=== PATIENT | female | born 1955 | race Caucasian/White ===

== ENCOUNTER → 2017-09-09 | Outpatient (CLI) | payer OTHER | LOC: BMCIMAGING 09:01 | PROVIDERS: ATTEND Family Medicine | DX: J98.09 Other diseases of bronchus, not elsewhere classified (principal) ==

== ENCOUNTER 2019-01-12 09:11 | Observation (INO) | payer OTHER ==
[2019-01-12] MEDS ORDERED: ASPIRIN 81 MG CHEWABLE TAB PO ONE (09:30)
[2019-01-12] MEDS ORDERED: NS 500 ML IV ONE (09:30)
[2019-01-12 09:48] LABS: PLATELET COUNT 247 10^3/uL (150-400)
[2019-01-12 10:09] LABS: INR 1.07 (0.83-1.16); PROTIME(PATIENT) 13.5 SEC (12.0-15.0)
[2019-01-12] MEDS ORDERED: ONDANSETRON 4 MG/2 ML VIAL IVP PRN (11:12)
[2019-01-12] MEDS ORDERED: ONDANSETRON DISINTEGRATING 4 MG TAB PO PRN (11:12)
--- NOTE | 2019-01-12 11:12 | EDPHY ---
H & P Time Seen by Provider: 01/12/19 09:30 HPI/ROS: HPI Chest pain, left arm numbness. 63-year-old female by private vehicle with her friend in co-worker. 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 This patient reports that 6:00 a.m. She developed substernal chest pain described as sharp and aching in deep. She had associated with this a sensation of numbness in her left shoulder, left side of her neck, running down the posterior aspect of her left arm into her 2nd and 3rd digits of the left hand. She reports that her chest pain is now better. She describes having a mild discomfort described as a pressure but still having this vague sensation of left upper extremity numbness. She denies any focal weakness. She has a family history of coronary artery disease. Otherwise she does not smoke. She denies any history of diabetes, hypertension , hyperlipidemia. ROS: Constitutional: No fever, no chills. No weakness. Eyes: No discharge. No changes in vision. ENT: No sore throat. No nasal congestion or rhinorrhea. Respiratory: No cough. No shortness of breath. Cardiac: As above, no palpitations. Gastrointestinal: No abdominal pain, no vomiting, no diarrhea. Genitourinary: No hematuria. No dysuria or increased frequency with urination. Musculoskeletal: No back pain. No neck pain. No myalgias or arthralgias. Skin: No rashes. Neurological: No headache. As above. Past medical history: GERD. She takes omeprazole for this. Sleep apnea and uses CPAP. Social history: Nonsmoker. No alcohol. Here with her friend. As above. Physical Exam: General Appearance: Alert, no distress. This patient is responding to questions appropriately and in full sentences. This patient appears well- hydrated and well-nourished. Eyes: Pupils equal and round no pallor or injection. No lid edema, erythema or injection. Respiratory: There are no retractions, lungs are clear to auscultation anteriorly with good air movement bilaterally. Cardiovascular: Regular rate and rhythm. No murmur. Gastrointestinal: Moderately obese habitus. Abdomen is soft and nontender, no masses, bowel sounds normal. No focal tenderness at McBurney's point. No Siddiqui sign. Neurological: Motor sensory function is grossly intact in the bilateral upper and bilateral lower extremities. Cranial nerves are normal. Gait is normal. Skin: Warm and dry, no rashes. Musculoskeletal: Neck is supple and nontender. No midline cervical, thoracic tenderness on palpation. No pain on flexion of her neck. Extremities are symmetrical. All joints range without pain or impingement. Psychiatric: No agitation. No depression. Database: EKG: EKG time is 9:21 a.m.; EKG shows a narrow complex normal sinus rhythm with a ventricular rate of 89. The RI, QRS, QT intervals are within normal limits. There are no ST-T wave changes indicative of ischemic or injury pattern. No evidence of right heart strain. Interpreted by me. Imaging: Chest x-ray AP portable: The cardiac mediastinal silhouette is unremarkable. Stable otherwise poor inspiration noted. No evidence of infiltrate or pneumothorax. Interpreted by me. Procedures: Emergency department course: Triage vital signs reviewed. She is moderately hypertensive. Vital signs are otherwise normal. IV was placed. She was placed on a lunchroom monitor. She was given 325 mg of chewed aspirin. EKG obtained and reviewed by myself. 11:05 a.m., the patient was re-evaluated, results of her diagnostic testing discussed with her and her friend. I recommended admission for further workup of her chest pain and left arm discomfort. She is in agreement. All of her questions were answered. Hospitalist paged. 11:15 a.m., spoke with on-call hospitalist, case discussed in detail, patient accepted for admission to telemetry observation under the care of Dr. Tucker. She was admitted in stable condition. Differential Diagnosis: The differential diagnosis on this patient includes but is not limited to acute coronary syndrome, anginal equivalent chest pain, anxiety reaction. CVA, cervical radiculopathy unlikely. This represents a partial list of diagnoses considered. These considerations are based on history, physical exam, past history, reassessment and diagnostic testing. Smoking Status: Never smoked Constitutional: Initial Vital Signs Temperature (C) 36.8 C 01/12/19 09:17 Heart Rate 91 01/12/19 09:17 Respiratory Rate 18 01/12/19 09:17 Blood Pressure 178/111 H 01/12/19 09:17 O2 Sat (%) 92 01/12/19 09:17 O2 Delivery Mode Room Air Allergies/Adverse Reactions: No Known Allergies Allergy (Unverified 01/12/19 09:12) Home Medications: Medication Instructions Recorded Omeprazole 01/12/19 Medical Decision Making - Diagnostics Imaging Results: Imaging Impressions Chest X-Ray 01/12/19 09:31 Impression: Stable relatively poor inspiration. Otherwise, normal chest x-ray. - Data Points Laboratory Results: Laboratory Results 01/12/19 09:23 01/12/19 09:23 01/12/19 01/12/19 01/12/19 09:27 09:23 09:23 WBC RBC Hgb Hct MCV MCH MCHC RDW Plt Count MPV Neut % (Auto) Lymph % (Auto) [place] % (Auto) Eos % (Auto) Baso % (Auto) Nucleat RBC Rel Count Absolute Neuts (auto) Absolute Lymphs (auto) Absolute Monos (auto) Absolute Eos (auto) Absolute Basos (auto) Absolute Nucleated RBC Immature Gran % Immature Gran # PT 13.5 SEC SEC (12.0-15.0) INR 1.07 (0.83-1.16) APTT 27.2 SEC SEC (23.0-38.0) Sodium 138 mEq/L mEq/L (135-145) Potassium 4.3 mEq/L mEq/L (3.5-5.2) Chloride 105 mEq/L mEq/L (97-110) Carbon Dioxide 24 mEq/l mEq/l (22-31) Anion Gap 9 mEq/L mEq/L (6-14) BUN 19 mg/dL mg/dL (7-23) Creatinine 0.9 mg/dL mg/dL (0.6-1.0) Estimated GFR > 60 Glucose 94 mg/dL mg/dL (70-100) Calcium 9.6 mg/dL mg/dL (8.5-10.4) POC Troponin I 0.00 ng/mL ng/mL (0.00-0.08) 01/12/19 09:23 WBC 8.28 10^3/uL 10^3/uL (3.80-9.50) RBC 4.99 10^6/uL 10^6/uL (4.18-5.33) Hgb 13.7 g/dL g/dL (12.6-16.3) Hct 41.1 % % (38.0-47.0) MCV 82.4 fL fL (81.5-99.8) MCH 27.5 pg L pg (27.9-34.1) MCHC 33.3 g/dL g/dL (32.4-36.7) RDW 13.8 % % (11.5-15.2) Plt Count 247 10^3/uL 10^3/uL (150-400) MPV 9.9 fL fL (8.7-11.7) Neut % (Auto) 40.6 % % (39.3-74.2) Lymph % (Auto) 47.1 % H % (15.0-45.0) Ventura % (Auto) 8.0 % % (4.5-13.0) Eos % (Auto) 3.1 % % (0.6-7.6) Baso % (Auto) 0.8 % % (0.3-1.7) Nucleat RBC Rel Count 0.0 % % (0.0-0.2) Absolute Neuts (auto) 3.36 10^3/uL 10^3/uL (1.70-6.50) Absolute Lymphs (auto) 3.90 10^3/uL H 10^3/uL (1.00-3.00) Absolute Monos (auto) 0.66 10^3/uL 10^3/uL (0.30-0.80) Absolute Eos (auto) 0.26 10^3/uL 10^3/uL (0.03-0.40) Absolute Basos (auto) 0.07 10^3/uL 10^3/uL (0.02-0.10) Absolute Nucleated RBC 0.00 10^3/uL 10^3/uL (0-0.01) Immature Gran % 0.4 % % (0.0-1.1) Immature Gran # 0.03 10^3/uL 10^3/uL (0.00-0.10) PT INR APTT Sodium Potassium Chloride Carbon Dioxide Anion Gap BUN Creatinine Estimated GFR Glucose Calcium POC Troponin I Medications Given: Discontinued Medications Aspirin (Aspirin) 324 mg PO EDNOW ONE Stop: 01/12/19 09:31 Last Admin: 01/12/19 09:39 Dose: 324 mg Sodium Chloride (Ns) 500 mls @ 1,000 mls/hr IV EDNOW ONE PRN Reason: Protocol Stop: 01/12/19 09:59 Last Admin: 01/12/19 09:39 Dose: 500 mls Point of Care Test Results: Chemistry 01/12/19 09:27 POC Troponin I 0.00 ng/mL ng/mL (0.00-0.08) Departure - Departure Disposition: [facility] Inpatient Acute Clinical Impression: Chest pain, Paresthesia of left arm Referrals: NONE *PRIMARY CARE P,. [Primary Care Provider] - As per Instructions
[2019-01-12] MEDS ORDERED: LIDOCAINE 2% VISCOUS 15 ML UDCUP PO PRN (11:17)
[2019-01-12] MEDS ORDERED: HYOSCYAMINE SULFATE 0.125 MG TAB PO PRN (11:17)
[2019-01-12] MEDS ORDERED: MAG HYDROX/AL HYDROX/SIMETH 30 ML UDCUP PO PRN (11:17)
[2019-01-12] MEDS ORDERED: LABETALOL HCL 5 MG/ML 20 ML MDV IVP PRN (12:25)
[2019-01-12] MEDS ORDERED: GADOBUTROL 10 ML VIAL IVP ONE (12:29)
[2019-01-12] MEDS: PANTOPRAZOLE SODIUM 40 MG TAB PO SCH (13:42)
--- NOTE | 2019-01-12 15:11 | PDGENHP ---
History and Physical - Chief Complaint facial numbness, chest pain - History of Present Illness 63 yo female with h/o GERD presents to ED reportin a brief episode of sharp chest pain, which occurred at 6 am at rest and was followed by facial numbness extending into her left arm. The chest pain resolved within a couple of seconds and was sharp and twingy. It has not returned. There was no associated diaphoresis, nausea or SOB. She has no cardiac risk factors. No h/ o htn, hld, diabetes or tobacco abuse. No family h/o premature heart disease. She is more focused on her facial numbness, "feels like I've had a novacaine injection into my face". This numbness persists during our conversation. She has had no facial asymmetry. No difficulty with speech. No focal weakness. Her has been present throughout the morning and has not noticed any speech problems or facial droop. In the ED, she is hypertensive. She is admitted for further evaluation. History Information - Allergies/Home Medication List Allergies/Adverse Reactions: No Known Allergies Allergy (Verified 01/12/19 11:43) Home Medications: Calcium Carbonate [Oyster Shell Calcium 500 mg (*)] 500 mg PO DAILY 01/12/19 [ Last Taken Unknown] Cholecalciferol Vit D3 [Vitamin D3 (*)] 1,000 units PO DAILY 01/12/19 [Last Taken Unknown] Dexlansoprazole [Dexilant] 60 mg PO DAILY 01/12/19 [Last Taken 01/11/19] Diclofenac Sodium 1% [Voltaren Gel (*)] 1 ravin TP DAILY PRN 01/12/19 [Last Taken Unknown] Herbals/Supplements -Info Only 1 ea PO DAILY 01/12/19 [Last Taken Unknown] Ibuprofen [Motrin (*)] 800 mg PO DAILY PRN 01/12/19 [Last Taken Unknown] Multivitamins [Multivitamin (*)] 1 each PO DAILY 01/12/19 [Last Taken Unknown] I have personally reviewed and updated: family history, medical history, social history, surgical history - Past Medical History GERD - Surgical History Reports: no pertinent surgical hx - Family History Positive for: hypertension - Social History Smoking Status: Never smoked Alcohol Use: Occasionally Drug Use: None Additional social history: Retired from work in the [employer] department. , at bedside. Review of Systems Review of Systems: ROS: 10pt was reviewed & negative except for what was stated in HPI & below Physical Exam Physical Exam: Temp Pulse Resp BP Pulse Ox 36.6 C 77 22 H 169/78 H 97 01/12/19 13:53 01/12/19 13:53 01/12/19 13:53 01/12/19 13:53 01/12/19 13:53 Constitutional: no apparent distress Eyes: PERRL Ears, Nose, Mouth, Throat: moist mucous membranes Cardiovascular: regular rate and rhythym Respiratory: no respiratory distress Gastrointestinal: normoactive bowel sounds, soft, non-tender abdomen Skin: warm Musculoskeletal: full muscle strength Neurologic: AAOx3, other (no facial asymmetry. pronator drift neg. 5/5 muscle strength b/l UE's and LE's. speech fluent) Psychiatric: interacting appropriately Lab Data & Imaging Review 01/12/19 09:23 01/12/19 09:23 WBC 8.28 10^3/uL (3.80-9.50) 01/12/19 09:23 RBC 4.99 10^6/uL (4.18-5.33) 01/12/19 09:23 Hgb 13.7 g/dL (12.6-16.3) 01/12/19 09:23 Hct 41.1 % (38.0-47.0) 01/12/19 09:23 MCV 82.4 fL (81.5-99.8) 01/12/19 09:23 MCH 27.5 pg (27.9-34.1) L 01/12/19 09:23 MCHC 33.3 g/dL (32.4-36.7) 01/12/19 09:23 RDW 13.8 % (11.5-15.2) 01/12/19 09:23 Plt Count 247 10^3/uL (150-400) 01/12/19 09:23 MPV 9.9 fL (8.7-11.7) 01/12/19 09:23 Neut % (Auto) 40.6 % (39.3-74.2) 01/12/19 09:23 Lymph % (Auto) 47.1 % (15.0-45.0) H 01/12/19 09:23 [place]andt % (Auto) 8.0 % (4.5-13.0) 01/12/19 09:23 Eos % (Auto) 3.1 % (0.6-7.6) 01/12/19 09: Baso % (Auto) 0.8 % (0.3-1.7) 01/12/19 09: Nucleat RBC Rel Count 0.0 % (0.0-0.2) 01/12/19 09: Absolute Neuts (auto) 3.36 10^3/uL (1.70-6.50) 01/12/19 09:23 Absolute Lymphs (auto) 3.90 10^3/uL (1.00-3.00) H 01/12/19 09: Absolute Monos (auto) 0.66 10^3/uL (0.30-0.80) 01/12/19 09: Absolute Eos (auto) 0.26 10^3/uL (0.03-0.40) 01/12/19 09: Absolute Basos (auto) 0.07 10^3/uL (0.02-0.10) 01/12/19 09: Absolute Nucleated RBC 0.00 10^3/uL (0-0.01) 01/12/19 09: Immature Gran % 0.4 % (0.0-1.1) 01/12/19 09: Immature Gran # 0.03 10^3/uL (0.00-0.10) 01/12/19 09: PT 13.5 SEC (12.0-15.0) 01/12/19 09: INR 1.07 (0.83-1.16) 01/12/19 09:23 APTT 27.2 SEC (23.0-38.0) 01/12/19 09:23 Sodium 138 mEq/L (135-145) 01/12/19 09:23 Potassium 4.3 mEq/L (3.5-5.2) 01/12/19 09: Chloride 105 mEq/L (97-110) 01/12/19 09:23 Carbon Dioxide 24 mEq/l (22-31) 01/12/19 09:23 Anion Gap 9 mEq/L (6-14) 01/12/19 09:23 BUN 19 mg/dL (7-23) 01/12/19 09:23 Creatinine 0.9 mg/dL (0.6-1.0) 01/12/19 09:23 Estimated GFR > 60 01/12/19 09:23 Glucose 94 mg/dL (70-100) 01/12/19 09:23 Calcium 9.6 mg/dL (8.5-10.4) 01/12/19 09:23 POC Troponin I 0.00 ng/mL (0.00-0.08) 01/12/19 09:27 Visualized and Interpreted Chest x-ray results: Yes Chest X-Ray results: no infiltrate EKG Interpretation: Positive for: normal sinsus rhythm, NS ST wave abnormalities Assessment & Plan Assessment: TIA - paresthesias of left face and left arm. No focal weakness or speech difficulties. She is hypertensive on my exam. -admit for TIA w/u -brain MRI/MRA now -permissive hypertension, treat for SBP >220, DBP >120 -check echo -check lipids, a1c -monitor on telemetry -neurology consult in am -start ASA Chest pain - this was sharp, fleeting, and sounds non-cardiac. Suspect GI etiology. HEART score is 2, could do outpt risk stratification. -trend trop -monitor on tele -repeat EKG now and prn for recurrent CP GERD - cont PPI, prn GI cocktail Hypertension - permissive hypertension as above, will likely start to lower BP tomorrow if persists elevated Anxiety Full code Dispo - obs
[2019-01-12] MEDS ORDERED: DICLOFENAC SODIUM 1% 100 GM GEL TP PRN (15:20)
--- NOTE | 2019-01-12 15:34 | CPEKG ---
Test Reason : OPEN Blood Pressure : / mmHG Vent. Rate : 089 BPM Atrial Rate : 088 BPM P-R Int : 149 ms QRS Dur : 095 ms QT Int : 389 ms P-R-T Axes : 029 059 046 degrees QTc Int : 474 ms Sinus rhythm Minimal ST depression, anterolateral leads Confirmed by Ludy Lugo ([id number]) on 01/12/2019 3:33:22 PM Referred By: PHYSICIAN ED Confirmed By:Ludy Lugo
[2019-01-12] MEDS: ACETAMINOPHEN 325 MG TAB PO PRN ×2 (15:46→20:43)
--- NOTE | 2019-01-12 16:29 | ECHO ---
[email or web address] [address] [address] Main: [phone] Echocardiography Examination Transthoracic Name: MARIA ALEJANDRA BERMAN MR#: [id number] Study Date: 01/12/2019 Study Time: 03:10 PM Date of : 1955 Age: 63 year(s) Height: 170.2 cm (67 in.) Weight: 104.33 kg (230 lb.) BSA: 2.15 m2 Gender: Female Examination: Echo with Agitated Saline Contrast: I.V. dose of agitated saline Image Quality: Adequate Rhythm: Normal sinus rhythm Heart Rate: 68 bpm BP: 169 mmHg/78 mmHg Indication: tia with bubble study Procedure Staff Referring Physician: Net Mobile Developer: Emmanuelle Holloway [facility] Reading Physician: Pako Singh MD Requesting Provider: Ordering Physician: Meseret Tucker Indication: tia with bubble study Measurements Chambers AV/MV Label Value Normal Value Label Value Normal Value LVOT Vmax 1.01 m/s (0.7m/s - 1.1m/s) AV PGmax 6 mmHg LVOTd 2 cm (1.8cm - 2cm) AV Vmax 1.19 m/s LVDd, 2D 4 cm (3.9cm - 5.3cm) LOC (Vmax) 2.7 cm2 LVDs, 2D 2.8 cm (2.1cm - 4cm) MV E Vmax 0.56 m/s IVSd, 2D 1 cm (0.6cm - 1.1cm) MV A Vmax 0.62 m/s LVPWd, 2D 1.1 cm MV E/A 0.9 LVEF, BP 60 % (55% - 70%) MV E/E' lateral 6.1 LVEF, 2D 56 % (54% - 74%) MV E/E' septal 7.3 (0.45 - 1.25) RVDd, 2D 3.6 cm (1.9cm - 3.8cm) MV DT 229 ms TAPSE 1.9 cm MV E' septal 0.08 m/s LA Volume, BP 58 ml (22ml - 52ml) MV E' lateral 0.09 m/s LADs, 2D 3.2 cm (2.7cm - 3.8cm) MV E/E' mean 6.59 LAESV index, BP 27 ml/m2 MV E' mean 0.08 m/s RA Area 15.7 cm2 TV/PV Additional Vessels Label Value Normal Value Label Value Normal Value RA Pressure 5 mmHg AoAsc 3.2 cm RVSP 26 mmHg AoRoot, 2D 3.4 cm (1.4cm - 2.6cm) TR Pmax 21 mmHg TR Vmax 2.28 m/s Patient: MARIA ALEJANDRA BERMAN Study Date: 01/12/2019 Page 1 of 3 03:10 PM PV PGmax 1 mmHg PV Vmax, Caliper 0.58 m/s (0.6m/s - 0.9m/s) Conclusions 1. The left ventricle is normal in size and function. The ejection fraction is 60-65%. There is no evidence of diastolic dysfunction. 2. The mitral valve is normal in structure. There is mild mitral valve leaflet thickening. There is trivial mitral regurgitation. 3. The aortic valve is normal in structure and function. 4. The pulmonary artery pressure estimate is 26 mm of mercury. 5. There is no evidence of right to left shunt by bubble study. 6. No old studies for comparison. Findings Left Ventricle: Left ventricle is normal in size. Normal global systolic left ventricular function. EF evaluated by EF (biplane Geller's). The ejection fraction, measured by Simpsons method, is 60 %. EF range is estimated at 60 % - 65 %. Left ventricle wall thickness is normal. There are no regional wall motion abnormalities. Left ventricular diastolic function parameters are normal. Right Ventricle: Normal size right ventricle. Right ventricular systolic function is normal. Left Atrium: The left atrium is normal in size. IAS: An agitated saline study was performed and was negative for intracardiac shunting. Right Atrium: The right atrium size is at the upper limits of normal. Mitral Valve: Trivial mitral regurgitation. No mitral valve stenosis. There is mild mitral thickening. Aortic Valve: The aortic valve is structurally normal and trileaflet. No aortic valve regurgitation. There is no aortic stenosis. Tricuspid Valve: Tricuspid valve leaflets are structurally normal. Mild tricuspid regurgitation. No tricuspid valve stenosis. Right Ventricular systolic pressure is measured at 26 mmHg. Pulmonary artery pressure normal. Pulmonic Valve: Pulmonic leaflets are structurally normal. No pulmonic valve regurgitation is evident. Aorta: The aortic root size in 2D measures 3.4 cm. The aortic root exhibits normal size. The ascending aorta measures 3.2 cm. Ascending aorta is normal in size. Aorta Measurements AoRoot, 2D is 3.4 cm. IVC: The inferior vena cava is normal in size and course. Pericardium: Trivial pericardial effusion. Exam Details Procedure Ordered: Echo with Agitated Saline Procedure Status: Routine study Image Quality: Adequate Contrast: I.V. dose of agitated salineIntravenous contrast was administered to evaluate intracardiac shunting Facility Location: Cardiac Echo 1 Patient: MARIA ALEJANDRA BERMAN Study Date: 01/12/2019 Page 2 of 3 03:10 PM (No Signature Object) Patient: MARIA ALEJANDRA BERMAN Study Date: 01/12/2019 Page 3 of 3 03:10 PM [id number]
[2019-01-13 07:13] VITALS: BP 145/77
[2019-01-13] MEDS: PANTOPRAZOLE SODIUM 40 MG TAB PO SCH (08:56)
[2019-01-13] MEDS ORDERED: ASPIRIN 81 MG CHEWABLE TAB PO SCH (09:00)
[2019-01-13] MEDS ORDERED: HYDROCODONE/APAP 5/325 TAB PO PRN (09:01)
--- NOTE | 2019-01-13 12:05 | GDS ---
[f rep st] DISCHARGE SUMMARY DISCHARGE DIAGNOSES: 1. Rule out transient ischemic attack. 2. Chest pain. 3. Gastroesophageal reflux disease. 4. Hypertension. 5. Anxiety. CONSULTATIONS: Neurology. STUDIES AND PROCEDURES DONE: 1. MRI of the neck. 2. Brain MRI. 3. Echocardiogram. PHYSICAL EXAM: GENERAL: The patient is alert. VITAL SIGNS: Afebrile at 36.6, pulse 71, respirator y rate is 18, blood pressure is 145/77. She is saturating 91% on room air. I have seen evaluated the patient on the day of discharge. HOSPITAL COURSE: Patient is a 63-year-old female who presented to the emergency room with complaints of facial numbness and chest pain. She was admitted to the hospital and evaluated. She did receive diagnoses for: 1. Rule out TIA. Her symptoms have completely resolved. She is having no residual effects. MRI an d MRA of the brain have been within normal limits. Her blood pressure has been stable. Echocardiogr am is benign. Patient did receive a Neurology consult and has been initiated on aspirin. She will f ollow up in the outpatient setting. 2. Chest pain. Again, this has totally resolved. Troponin has been benign and her EKG is within no rmal limits. 3. GERD. This is stable. 4. Hypertension. This is mildly elevated; however, the patient wishes to defer to follow up with he r primary care physician. 5. Anxiety. Potentially, this episode was related to the patient's underlying anxiety. She will fo llow with primary care physician. DISCHARGE MEDICATIONS: Please refer to EMR form. New medications include aspirin 81 mg daily. /[id number]/MODL
--- NOTE | 2019-01-13 12:22 | ASMTLACE ---
LACE Length of stay for Answers: 2 days current admission Acuity / Level of Answers: No Care: Did the patient have an inpatient admission? Comorbidities - select Answers: Other Notes: HTN all that apply # of Emergency department Answers: 1-2 visits in the last 6 months Social determinants Answers: Mental health diagnosis (anxiety, depression, pers onality disorders, etc.) Score: 7 Date Signed: 01/13/2019 12:21 PM Electronically Signed By:MARY Mehta
--- NOTE | 2019-01-13 12:23 | ASMTCMCOM ---
CM Note CM Note Notes: Pt in with facial numbness and chest pain, symptoms resolved. Neuro consulted and cleared pt for home. MUSIC SPECIALIST rec home. Pt medically stable for d/c, no CM d/c needs identified. Date Signed: 01/13/2019 12:22 PM Electronically Signed By:MARY Mehta
--- NOTE | 2019-01-13 12:39 | NEUROPROG ---
Assessment: [id number] - Neurology Consult: - CC: Dr. Tucker consulted neurology for paresthesias. Results placed in EMR for her review. - HPI: 01/13/19: Pt reported on 01/12/19 she had a brief episode of sharp chest pain followed by facial numbness extending into her left arm. The chest pain only lasted briefly and did not recur although the left facial numbness persisted for hours. Pt also had an associated left sided headache. Her neurologic exam on 01/13/19 was normal. Brain MRI, telemetry, brain/neck MRA, and TTE all unremarkable for stroke or acute problems. Pt was hypertensive on admission. Symptoms seem most likely to be an atypical migraine given > 1 hour of left facial and arm paresthesias with normal brain MRI. I recommended pt begin magnesium citrate 400 mg qhs for migraine prevention. Pt given my phone number to call or f/u as needed. - PMHx: GERD - Meds: dexilant, Ca, Vit D - SHx: no tobacco FHx: no significant neurologic issues - ROS: Pt denied acute fever, total vision loss, active severe chest pain, respiratory failure, total body severe rash, total bowel/bladder incontinence, psychosis, active seizures, or active bleeding - O: VS reviewed General: Alert Eyes: Fundoscopic exam not able to visualize optic disks CV: Heart RRR, no murmur, no carotid bruit Lungs: Clear to auscultation bilaterally, no rhonchi or rales Neuro: - Mental: . Oriented x person/place/date . concentration appears normal . speech fluency/comprehension normal . memory appears normal . fund of knowledge appear intact - Cranial Nerves: . II: PERRL, VFFTC . III/IV/: EOMI, no nystagmus, normal smooth pursuits, no Ptosis . V: facial sensation intact to LT . VII: face symmetric to eye closure and smile . VIII: hearing intact to conversation . IX/X: uvula raises symmetrically . XI: SCM 5/5 B/L strength . XII: tongue protrudes midline w/nl strength - Motor: . Tone: normal tone in all 4 extremity . Strength: no pronator drift, strength 5/5 throughout (B/L delt, bic, tri, hand emission technician, hf/he, df/pf) - Reflexes: B/L bic 2/4 - Sensory: all 4 extremity intact to light touch - Coord: [id number] wnl, RANJEET wnl, [id number] wnl - Gait: deferred - Labs: 01/12/19- CBC wnl, Coags wnl, Chem wnl, H1AC 5.6 01/13/19- LDL 127H - Rads: 01/12/19- TTE: no cardiac thrombus reported - 01/12/19- Brain MRI wo: mod CMVD, no acute stroke or changes (I personally visualized the images on 01/13/19) - 01/12/19- Brain/neck MRA: unremarkable - Assessment: 1. Atypical Migraine causing Left face and arm paresthesias on 01/12/19 following chest pain - Plan: - begin magnesium citrate 400 mg qhs for migraine prevention - F/U in neurology clinic PRN (pt has my contact number) Objective: Vital Signs Temp Pulse Resp BP Pulse Ox 36.6 C 71 18 145/77 H 91 L 01/13/19 07:12 01/13/19 07:12 01/13/19 07:12 01/13/19 07:12 01/13/19 07:12 01/12/19 01/13/19 01/14/19 05:59 05:59 05:59 Intake Total 500 900 Balance 500 900 PT 13.5 SEC (12.0-15.0) 01/12/19 09:23 INR 1.07 (0.83-1.16) 01/12/19 09:23 Allergies/Adverse Reactions: No Known Allergies Allergy (Verified 01/12/19 11:43)
== END 2019-01-13 12:04 | disposition home or self-care (01) ==
LOC: F3N 13:48
PROVIDERS: ADMIT Hospitalist; ATTEND Hospitalist
DX: R20.2 Paresthesia of skin (principal); R07.9 Chest pain, unspecified; E86.9 Volume depletion, unspecified; I10 Essential (primary) hypertension; K21.9 Gastro-esophageal reflux disease without esophagitis; F41.9 Anxiety disorder, unspecified; G47.33 Obstructive sleep apnea (adult) (pediatric)
CPT/HCPCS: 70544; 70549; 70551; 71045; 92610; 93005; 93306; 96360; 99285; G0378; 84484-ER; A9585